=== PATIENT | female | born 1985 | race Two or more races ===

== ENCOUNTER 2017-06-18 06:21 | Inpatient (IN) | payer BC ==
[~2017-06-18 06:21] MED LIST: Sodium Chloride 0.9% 10 ML Syringe FLUSH PRN; Sodium Chloride 0.9% 2.5 ML Syringe FLUSH PRN; ceFAZolin 2 GM in Premix Bag 1 BAG IV ONE
[2017-06-18] MEDS ORDERED: Lactated Ringers 1,000 ML IV SCH (07:00)
[2017-06-18] MEDS ORDERED: Rocuronium 10 MG/ML 10 ML Syringe ONE (07:12)
[2017-06-18] MEDS ORDERED: Lidocaine 2% 5 ML SDV ONE (07:12)
[2017-06-18] MEDS ORDERED: Ondansetron 4 MG/2 ML SDV ONE (07:12)
[2017-06-18] MEDS ORDERED: Neostigmine Methylsulfate 1 MG/ML 5 ML Syringe ONE (07:12)
[2017-06-18] MEDS ORDERED: fentaNYL 250 MCG/5 ML SDV ONE ×2 (07:13→08:29)
[2017-06-18] MEDS ORDERED: Propofol 200 MG/20 ML SDV ONE (07:13)
[2017-06-18] MEDS ORDERED: Midazolam 1 MG/ML 2 ML SDV ONE (07:13)
[2017-06-18] MEDS ORDERED: Sodium Chloride 0.9% 20 ML ONE (07:15)
[2017-06-18] MEDS ORDERED: Water For Injection, Sterile 20 ML ONE (07:15)
[2017-06-18] MEDS ORDERED: ceFAZolin 1 GM Vial ONE (07:15)
[2017-06-18 07:20] LABS: CHLORIDE,CL 111 mmol/L (98-110); SODIUM,NA 141 mmol/L (136-146)
[2017-06-18] MEDS ORDERED: ePHEDrine 50 MG/ML SDV ONE (07:21)
[2017-06-18] MEDS ORDERED: Octyl 2-Cyanoacrylate 1 Tube ONE (07:24)
--- NOTE | 2017-06-18 07:37 | PCM.PREANE ---
Preanesthetic Assessment - Anesthesia/Transfusion/Family Hx Anesthesia History: Prior Anesthesia Without Reaction Family History of Anesthesia Reaction: No Transfusion History: No Prior Transfusion(s) - Review of Systems General: No Symptoms Pulmonary: No Symptoms Cardiovascular: No Symptoms Gastrointestinal: No Symptoms Neurological: No Symptoms Other: Reports: None - Physical Assessment NPO Status Date: 06/17/17 NPO Status Time: 23:00 O2 Sat by Pulse Oximetry: 98 Respiratory Rate: 16 Vital Signs: Last Vital Signs Temp 36.2 C 06/18/17 06:55 Pulse 69 06/18/17 06:55 Resp 16 06/18/17 06:55 BP 116/67 06/18/17 06:55 Pulse Ox 98 06/18/17 06:55 Height: 1.59 m Weight: 85.275 kg Mental Status: Alert & Oriented x3 Airway Class: Mallampati = 1 Dentition: Reports: Normal Dentition ROM/Head Extension: Full Lungs: Clear to Auscultation, Normal Respiratory Effort Cardiovascular: Regular Rate, Regular Rhythm - Lab Values: Laboratory Last Values WBC 2.33 K/uL (4.0-11.0) L 06/18/17 06:47 RBC 4.62 M/uL (4.30-5.90) 06/18/17 06:47 Hgb 12.2 g/dL (12.0-16.0) 06/18/17 06:47 Hct 36.6 % (36.0-46.0) 06/18/17 06:47 MCV 79.2 fL (80.0-98.0) L 06/18/17 06:47 MCH 26.4 pg (27.0-32.0) L 06/18/17 06:47 MCHC 33.3 g/dL (31.0-37.0) 06/18/17 06:47 RDW Std Deviation 41.2 fl (28.0-62.0) 06/18/17 06:47 RDW Coeff of Angelina 14 % (11.0-15.0) 06/18/17 06:47 Plt Count 254 K/uL (150-400) 06/18/17 06:47 MPV 9.60 fL (7.40-12.00) 06/18/17 06:47 Nucleated RBC % 0.0 /100WBC 06/18/17 06:47 Nucleated RBCs # 0 K/uL 06/18/17 06:47 Sodium 141 mmol/L (136-146) 06/18/17 06:47 Potassium 4.0 mmol/L (3.5-5.1) 06/18/17 06:47 Chloride 111 mmol/L (98-110) H 06/18/17 06:47 Carbon Dioxide 22 mmol/L (21-31) 06/18/17 06:47 BUN 13 mg/dL (6.0-23.0) 06/18/17 06:47 Creatinine 0.7 mg/dL (0.6-1.5) 06/18/17 06:47 Est Cr Clr Drug Dosing 93.53 mL/min 06/18/17 06:47 Estimated GFR (MDRD) > 60.0 ml/min 06/18/17 06:47 Glucose 113 mg/dL (60-110) H 06/18/17 06:47 Calcium 8.7 mg/dL (8.8-10.8) L 06/18/17 06:47 HCG, Qual NEGATIVE (NEG) 06/18/17 06:47 Blood Type O POSITIVE 06/18/17 06:47 Antibody Screen NEGATIVE 06/18/17 06:47 - Allergies Allergies/Adverse Reactions: Allergies Allergy/AdvReac Type Severity Reaction Status Date / Time No Known Allergies Allergy Verified 08/01/16 16:34 - Anesthesia Plan Pre-Op Medication Ordered: None - Acknowledgements Anesthesia Type Planned: General Anesthesia Pt an Appropriate Candidate for the Planned Anesthesia: Yes Alternatives and Risks of Anesthesia Discussed w Pt/Guardian: Yes Pt/Guardian Understands and Agrees with Anesthesia Plan: Yes PreAnesthesia Questionnaire - Past Health History Medical/Surgical History: Denies Medical/Surgical History Gastrointestinal History: Reports: None Other Gastrointestinal History: appy Genitourinary History: Reports: Other (See Below) Other Genitourinary History: states currently has uterine fibroid 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: Dysfunctional 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 [No Known Home Meds] 06/14/17 [History] - CURRENT (IN HOUSE) MEDS Current Meds: Current Medications Lactated Ringer's (Ringers, Lactated) 1,000 mls @ 100 mls/hr IV ASDIRECTED ALEJANDRA Sodium Chloride (Saline Flush) 10 ml FLUSH ASDIRECTED PRN PRN Reason: Keep Vein Open Sodium Chloride (Saline Flush) 2.5 ml FLUSH ASDIRECTED PRN PRN Reason: Keep Vein Open Discontinued Medications Cefazolin Sodium (Ancef) Confirm Administered Dose 2 gm .ROUTE .STK-MED ONE Stop: 06/18/17 07:16 Ephedrine Sulfate (Ephedrine Sulfate) Confirm Administered Dose 50 mg .ROUTE .STK-MED ONE Stop: 06/18/17 07:22 Fentanyl (Sublimaze) Confirm Administered Dose 250 mcg .ROUTE .STK-MED ONE Stop: 06/18/17 07:14 Glycopyrrolate () Confirm Administered Dose 1 mg .ROUTE .STK-MED ONE Stop: 06/18/17 07:13 Cefazolin Sodium/Dextrose 2 gm (/ Premix) 50 mls @ 100 mls/hr IV ONETIME ONE Stop: 06/18/17 05:29 Sodium Chloride (Normal Saline) Confirm Administered Dose 20 mls @ as directed .ROUTE .STK-MED ONE Stop: 06/18/17 07:16 Sterile Water (Sterile Water For Injection) Confirm Administered Dose 20 mls @ as directed .ROUTE .STK-MED ONE Stop: 06/18/17 07:16 Lidocaine (Xylocaine-Mpf 2%) Confirm Administered Dose 5 ml .ROUTE .STK-MED ONE Stop: 06/18/17 07:13 Midazolam HCl (Versed 1 Mg/Ml) Confirm Administered Dose 2 mg .ROUTE .STK-MED ONE Stop: 06/18/17 07:14 Neostigmine Methylsulfate (Neostigmine) Confirm Administered Dose 5 mg .ROUTE .STK-MED ONE Stop: 06/18/17 07:13 Octyl Cyanoacrylate (Dermabond Advance) Confirm Administered Dose 1 applic .ROUTE .STK-MED ONE Stop: 06/18/17 07:25 Ondansetron HCl (Zofran) Confirm Administered Dose 4 mg .ROUTE .STK-MED ONE Stop: 06/18/17 07:13 Propofol (Diprivan 20 Ml) Confirm Administered Dose 200 mg .ROUTE .STK-MED ONE Stop: 06/18/17 07:14 Rocuronium [place] (Zemuron) Confirm Administered Dose 100 mg .ROUTE .STK-MED ONE Stop: 06/18/17 07:13 Vecuronium [place] (Vecuronium) Confirm Administered Dose 10 mg .ROUTE .STK-MED ONE Stop: 06/18/17 07:16
[2017-06-18] MEDS ORDERED: HYDROmorphone 2 MG/ML Syringe ONE (08:29)
[2017-06-18] MEDS ORDERED: Metoprolol Tartrate 5 MG/5 ML SDV ONE (08:56)
[2017-06-18] MEDS ORDERED: Dexamethasone 4 MG/ML 5 ML MDV ONE (09:14)
[2017-06-18] MEDS ORDERED: Furosemide 40 MG/4 ML VIAL ONE (09:16)
[2017-06-18] MEDS ORDERED: Fluorescein 5 ML Vial ONE (09:17)
[2017-06-18] MEDS ORDERED: Phenylephrine/Normal Saline 100 MCG/ML 10 ML Syringe ONE (09:40)
[2017-06-18] MEDS ORDERED: fentaNYL 100 MCG/2 ML SDV ONE ×2 (10:35→11:37)
[2017-06-18] MEDS ORDERED: Ondansetron 4 MG/2 ML SDV IVPUSH PRN (11:05)
[2017-06-18] MEDS ORDERED: Morphine 4 MG/ML Syringe IVPUSH PRN (11:05)
[2017-06-18] MEDS ORDERED: Promethazine 25 MG/ML SDV IM PRN (11:05)
--- NOTE | 2017-06-18 11:17 | PCM.OPNOTE ---
- General Post-Op/Procedure Note Date of Surgery/Procedure: 06/18/17 Operative Procedure(s): Total abdominal hysterectomy with bilateral salpingectomy and Cystoscopy Findings: Bulky uterus, 18 weeks size with multi-lobed subserosal fibroids. Normal ovaries and tubes bilaterally Pre Op Diagnosis: 1)Menorrhagia. 2) Fibroid Uterus Post-Op Diagnosis: Same Anesthesia Technique: General ET Tube Primary Surgeon: Kathleen Ly Anesthesia Provider: Francisco Garnica Divisional Human Resources Director: Teena Henriquez Pathology: Uterus with cervix and Bilateral tubes Fluid Replacement, Intraop: 4,000 Output, Urine Amount: 120 EBL in mLs: 750 Complications: None Condition: Good
[2017-06-18] MEDS: Ketorolac 30 MG/ML SDV IVPUSH SCH ×3 (11:22→23:00)
[2017-06-18] MEDS: fentaNYL 100 MCG/2 ML SDV IVPUSH PRN ×4 (11:39→12:10)
--- NOTE | 2017-06-18 12:04 | PCM.POSTAN ---
POST ANESTHESIA ASSESSMENT - MENTAL STATUS Mental Status: Alert, Oriented - VITAL SIGNS Pulse Rate: 67 SaO2: 95 Resp Rate: 16 Blood Pressure: 131/70 - RESPIRATORY Respiratory Status: Respiratory Rate WNL, Airway Patent, O2 Saturation Stable - CARDIOVASCULAR CV Status: Pulse Rate WNL, Blood Pressure Stable - GASTROINTESTINAL GI Status: No Symptoms - PAIN Pain Score: 7 (fentanyl added before transfer) - POST OP HYDRATION Hydration Status: Adequate & Stable
[2017-06-18] MEDS: Morphine 2 MG/ML Syringe IVPUSH PRN ×2 (16:12→20:37)
--- NOTE | 2017-06-18 18:08 | PCM.SURGPN ---
- General Info Date of Service: 06/18/17 POD#: 0 Functional Status: Reports: Pain Controlled, Tolerating Diet, Incentive Spirometry - Review of Systems General: Denies: Fever, Malaise, Chills HEENT: Denies: Headaches Pulmonary: Denies: Shortness of Breath, Pleuritic Chest Pain Cardiovascular: Denies: Chest Pain, Palpitations, Dyspnea on Exertion Gastrointestinal: Reports: Abdominal Pain (Along incision) Genitourinary: Denies: Flank Pain Psychiatric: Denies: Depression, Mood Lability, Anxiety - Patient Data Vitals - Most Recent: Last Vital Signs Temp 36.3 C 06/18/17 16:00 Pulse 71 06/18/17 16:00 Resp 18 06/18/17 16:00 BP 109/66 06/18/17 16:00 Pulse Ox 100 06/18/17 16:00 Weight - Most Recent: 188 lb I&O - Last 24 Hours: Intake & Output 06/18/17 06/18/17 06/18/17 06:59 14:59 22:59 Intake Total 9550 344 Output Total 440 225 Balance 9110 119 Lab Results Last 24 Hrs: Laboratory Results - last 24 hr 06/18/17 06/18/17 06/18/17 Range/Units 06:47 06:47 06:47 WBC 2.33 L (4.0-11.0) K/uL RBC 4.62 (4.30-5.90) M/uL Hgb 12.2 (12.0-16.0) g/dL Hct 36.6 (36.0-46.0) % MCV 79.2 L (80.0-98.0) fL MCH 26.4 L (27.0-32.0) pg MCHC 33.3 (31.0-37.0) g/dL RDW Std Deviation 41.2 (28.0-62.0) fl RDW Coeff of Angelina 14 (11.0-15.0) % Plt Count 254 (150-400) K/uL MPV 9.60 (7.40-12.00) fL Nucleated RBC % 0.0 /100WBC Nucleated RBCs # 0 K/uL Sodium 141 (136-146) mmol/L Potassium 4.0 (3.5-5.1) mmol/L Chloride 111 H (98-110) mmol/L Carbon Dioxide 22 (21-31) mmol/L BUN 13 (6.0-23.0) mg/dL Creatinine 0.7 (0.6-1.5) mg/dL Est Cr Clr Drug Dosing 93.53 mL/min Estimated GFR (MDRD) > 60.0 ml/min Glucose 113 H (60-110) mg/dL Calcium 8.7 L (8.8-10.8) mg/dL HCG, Qual NEGATIVE (NEG) Urine Color Urine Appearance Urine pH (5.0-8.0) Ur Specific [place] (1.001-1.035) Urine Protein (NEGATIVE) mg/dL Urine Glucose (UA) (NEGATIVE) mg/dL Urine Ketones (NEGATIVE) mg/dL Urine Occult Blood (NEGATIVE) Urine Nitrite (NEGATIVE) Urine Bilirubin (NEGATIVE) Urine Urobilinogen (<2.0) EU/dL Ur Leukocyte Esterase (NEGATIVE) Blood Type Antibody Screen 06/18/17 06/18/17 Range/Units 06:47 09:30 WBC (4.0-11.0) K/uL RBC (4.30-5.90) M/uL Hgb (12.0-16.0) g/dL Hct (36.0-46.0) % MCV (80.0-98.0) fL MCH (27.0-32.0) pg MCHC (31.0-37.0) g/dL RDW Std Deviation (28.0-62.0) fl RDW Coeff of Angelina (11.0-15.0) % Plt Count (150-400) K/uL MPV (7.40-12.00) fL Nucleated RBC % /100WBC Nucleated RBCs # K/uL Sodium (136-146) mmol/L Potassium (3.5-5.1) mmol/L Chloride (98-110) mmol/L Carbon Dioxide (21-31) mmol/L BUN (6.0-23.0) mg/dL Creatinine (0.6-1.5) mg/dL Est Cr Clr Drug Dosing mL/min Estimated GFR (MDRD) ml/min Glucose (60-110) mg/dL Calcium (8.8-10.8) mg/dL HCG, Qual (NEG) Urine Color YELLOW Urine Appearance CLEAR Urine pH 8.5 H (5.0-8.0) Ur Specific [place] 1.010 (1.001-1.035) Urine Protein TRACE (NEGATIVE) mg/dL Urine Glucose (UA) NEGATIVE (NEGATIVE) mg/dL Urine Ketones NEGATIVE (NEGATIVE) mg/dL Urine Occult Blood MODERATE (NEGATIVE) Urine Nitrite NEGATIVE (NEGATIVE) Urine Bilirubin NEGATIVE (NEGATIVE) Urine Urobilinogen 0.2 (<2.0) EU/dL Ur Leukocyte Esterase NEGATIVE (NEGATIVE) Blood Type O POSITIVE Antibody Screen NEGATIVE Med Orders - Current: Current Medications Lactated Ringer's (Ringers, Lactated) 1,000 mls @ 150 mls/hr IV ASDIRECTED [facility] Last Admin: 06/18/17 14:09 Dose: 150 mls/hr Ketorolac Tromethamine (Toradol) 30 mg IVPUSH Q6H [facility] Stop: 06/19/17 05:16 Last Admin: 06/18/17 17:17 Dose: 30 mg Morphine Sulfate (Morphine) 2 mg IVPUSH Q2H PRN PRN Reason: Pain (severe 7-10) Last Admin: 06/18/17 16:12 Dose: 2 mg Morphine Sulfate (Morphine) 4 mg IVPUSH Q2H PRN PRN Reason: Pain (severe 7-10) Ondansetron HCl (Zofran) 4 mg IVPUSH Q6H PRN PRN Reason: Nausea/Vomiting Oxycodone/Acetaminophen (Percocet 325-5 Mg) 1 tab PO Q4H PRN PRN Reason: Pain (moderate 4-6) Oxycodone/Acetaminophen (Percocet 325-5 Mg) 2 tab PO Q4H PRN PRN Reason: Pain (moderate 4-6) Promethazine HCl (Phenergan) 25 mg IM Q6H PRN PRN Reason: Nausea/Vomiting Discontinued Medications Cefazolin Sodium (Ancef) Confirm Administered Dose 2 gm .ROUTE .STK-MED ONE Stop: 06/18/17 07:16 Dexamethasone (Dexamethasone) Confirm Administered Dose 20 mg .ROUTE .STK-MED ONE Stop: 06/18/17 09:15 Ephedrine Sulfate (Ephedrine Sulfate) Confirm Administered Dose 50 mg .ROUTE .STK-MED ONE Stop: 06/18/17 07:22 Fentanyl (Sublimaze) Confirm Administered Dose 250 mcg .ROUTE .STK-MED ONE Stop: 06/18/17 07:14 Fentanyl (Sublimaze) Confirm Administered Dose 250 mcg .ROUTE .STK-MED ONE Stop: 06/18/17 08:30 Fentanyl (Sublimaze) Confirm Administered Dose 100 mcg .ROUTE .STK-MED ONE Stop: 06/18/17 10:36 Fentanyl (Sublimaze) Confirm Administered Dose 100 mcg .ROUTE .STK-MED ONE Stop: 06/18/17 11:38 Last Admin: 06/18/17 17:24 Dose: Not Given Fentanyl (Sublimaze) 50 - 100 mcg IVPUSH Q5M PRN PRN Reason: Pain Last Admin: 06/18/17 12:10 Dose: 50 mcg Fluorescein Sodium (Ak-Fluor) Confirm Administered Dose 5 ml .ROUTE .STK-MED ONE Stop: 06/18/17 09:18 Furosemide (Lasix) Confirm Administered Dose 40 mg .ROUTE .STK-MED ONE Stop: 06/18/17 09:17 Glycopyrrolate () Confirm Administered Dose 1 mg .ROUTE .STK-MED ONE Stop: 06/18/17 07:13 Hydromorphone HCl (Dilaudid) Confirm Administered Dose 2 mg .ROUTE .STK-MED ONE Stop: 06/18/17 08:30 Cefazolin Sodium/Dextrose 2 gm (/ Premix) 50 mls @ 100 mls/hr IV ONETIME ONE Stop: 06/18/17 05:29 Sodium Chloride (Normal Saline) Confirm Administered Dose 20 mls @ as directed .ROUTE .STK-MED ONE Stop: 06/18/17 07:16 Sterile Water (Sterile Water For Injection) Confirm Administered Dose 20 mls @ as directed .ROUTE .STK-MED ONE Stop: 06/18/17 07:16 Lidocaine (Xylocaine-Mpf 2%) Confirm Administered Dose 5 ml .ROUTE .STK-MED ONE Stop: 06/18/17 07:13 Metoprolol Tartrate (Lopressor) Confirm Administered Dose 5 mg .ROUTE .STK-MED ONE Stop: 06/18/17 08:57 Midazolam HCl (Versed 1 Mg/Ml) Confirm Administered Dose 2 mg .ROUTE .STK-MED ONE Stop: 06/18/17 07:14 Neostigmine Methylsulfate (Neostigmine) Confirm Administered Dose 5 mg .ROUTE .STK-MED ONE Stop: 06/18/17 07:13 Octyl Cyanoacrylate (Dermabond Advance) Confirm Administered Dose 1 applic .ROUTE .STK-MED ONE Stop: 06/18/17 07:25 Ondansetron HCl (Zofran) Confirm Administered Dose 4 mg .ROUTE .STK-MED ONE Stop: 06/18/17 07:13 Phenylephrine HCl (Phenylephrine In Ns 100 Mcg/Ml) Confirm Administered Dose 1 mg .ROUTE .STK-MED ONE Stop: 06/18/17 09:41 Propofol (Diprivan 20 Ml) Confirm Administered Dose 200 mg .ROUTE .STK-MED ONE Stop: 06/18/17 07:14 Rocuronium [place] (Zemuron) Confirm Administered Dose 100 mg .ROUTE .STK-MED ONE Stop: 06/18/17 07:13 Sodium Chloride (Saline Flush) 10 ml FLUSH ASDIRECTED PRN PRN Reason: Keep Vein Open Sodium Chloride (Saline Flush) 2.5 ml FLUSH ASDIRECTED PRN PRN Reason: Keep Vein Open Vecuronium [place] (Vecuronium) Confirm Administered Dose 10 mg .ROUTE .STK-MED ONE Stop: 06/18/17 07:16 - Exam Wound/Incisions: Dressing Dry and Intact General: Alert, Oriented HEENT: Pupils Equal Lungs: Clear to Auscultation, Normal Respiratory Effort Cardiovascular: Regular Rate, Regular Rhythm GI/Abdominal Exam: Normal Bowel Sounds, Soft Extremities: Non-Tender, No Pedal Edema Psy/Mental Status: Alert, Normal Affect, Normal Mood - Problem List & Annotations (1) Uterine leiomyoma SNOMED Code(s): 95177218 Code(s): D25.9 - LEIOMYOMA OF UTERUS, UNSPECIFIED Status: Acute Current Visit: Yes (2) S/P total abdominal hysterectomy SNOMED Code(s): 494172466, 978514359 Code(s): Z90.710 - ACQUIRED ABSENCE OF BOTH CERVIX AND UTERUS Status: Acute Current Visit: Yes (3) Status post bilateral salpingectomy SNOMED Code(s): 278508519 Code(s): Z90.79 - ACQUIRED ABSENCE OF OTHER GENITAL ORGAN(S) Status: Acute Current Visit: Yes - Problem List Review Problem List Initiated/Reviewed/Updated: Yes - My Orders Last 24 Hours: Active Orders 24 hr Category Date Time Status Patient Status [ADT] Routine ADT 06/18/17 11:05 Active Antiembolic Devices [RC] PER UNIT ROUTINE Care 06/18/17 05:00 Inactive Antiembolic Devices [RC] PER UNIT ROUTINE Care 06/18/17 11:06 Active Intake and Output [RC] Q4HR Care 06/18/17 11:06 Active Notify Provider Intake and Out [RC] ASDIRECTED Care 06/18/17 11:05 Active Notify Provider Vital Signs [RC] ASDIRECTED Care 06/18/17 11:05 Active Oxygen Therapy [RC] ASDIRECTED Care 06/18/17 11:05 Active Procedure Prep Instructions [RC] PER UNIT ROUTINE Care 06/18/17 05:00 Inactive Procedure Site Prep Instruct [RC] PER UNIT ROUTINE Care 06/18/17 05:00 Inactive Pulse Oximetry [RC] PER UNIT ROUTINE Care 06/18/17 11:06 Active RT Incentive Spirometry [RC] Q2HWA Care 06/18/17 11:05 Active Up With Assistance [RC] PER UNIT ROUTINE Care 06/18/17 11:05 Active Up ad Amelia [RC] PER UNIT ROUTINE Care 06/18/17 11:05 Active Urinary Catheter Removal [RC] Per Unit Routine Care 06/18/17 11:05 Active Verify Patient Consent Obtain [RC] PER UNIT ROUTINE Care 06/18/17 05:00 Inactive Vital Signs [RC] PER UNIT ROUTINE Care 06/18/17 05:00 Inactive Vital Signs [RC] PER UNIT ROUTINE Care 06/18/17 11:05 Active Regular Diet [DIET] Diet 06/18/17 Dinner Active BASIC METABOLIC PANEL,BMP [CHEM] AM Lab 06/19/17 05:11 Ordered CBC WITH AUTO DIFF [HEME] AM Lab 06/19/17 05:11 Ordered Acetaminophen/oxyCODONE [Percocet 325-5 MG] Med 06/18/17 11:05 Active 1 tab PO Q4H PRN Acetaminophen/oxyCODONE [Percocet 325-5 MG] Med 06/18/17 11:05 Active 2 tab PO Q4H PRN Ketorolac [Toradol] Med 06/18/17 11:15 Active 30 mg IVPUSH Q6H Lactated Ringers [Ringers, Lactated] 1,000 ml Med 06/18/17 07:00 Active IV ASDIRECTED Morphine Med 06/18/17 11:05 Active 2 mg IVPUSH Q2H PRN Morphine Med 06/18/17 11:05 Active 4 mg IVPUSH Q2H PRN Ondansetron [Zofran] Med 06/18/17 11:05 Active 4 mg IVPUSH Q6H PRN Promethazine [Phenergan] Med 06/18/17 11:05 Active 25 mg IM Q6H PRN Abdominal Binder [OM.PC] Per Unit Routine Oth 06/18/17 11:07 Ordered Peripheral IV Discontinue [OM.PC] Routine Oth 06/18/17 11:05 Ordered Sequential Compression Device [OM.PC] Per Unit Routine Oth 06/18/17 11:05 Ordered Resuscitation Status Routine Resus Stat 06/18/17 11:05 Ordered Medication Orders Lactated Ringer's (Ringers, Lactated) 1,000 mls @ 150 mls/hr IV ASDIRECTED [facility] Last Admin: 06/18/17 14:09 Dose: 150 mls/hr Ketorolac Tromethamine (Toradol) 30 mg IVPUSH Q6H [facility] Stop: 06/19/17 05:16 Last Admin: 06/18/17 17:17 Dose: 30 mg Admin: 06/18/17 11:22 Dose: 30 mg Morphine Sulfate (Morphine) 2 mg IVPUSH Q2H PRN PRN Reason: Pain (severe 7-10) Last Admin: 06/18/17 16:12 Dose: 2 mg Morphine Sulfate (Morphine) 4 mg IVPUSH Q2H PRN PRN Reason: Pain (severe 7-10) Ondansetron HCl (Zofran) 4 mg IVPUSH Q6H PRN PRN Reason: Nausea/Vomiting Oxycodone/Acetaminophen (Percocet 325-5 Mg) 1 tab PO Q4H PRN PRN Reason: Pain (moderate 4-6) Oxycodone/Acetaminophen (Percocet 325-5 Mg) 2 tab PO Q4H PRN PRN Reason: Pain (moderate 4-6) Promethazine HCl (Phenergan) 25 mg IM Q6H PRN PRN Reason: Nausea/Vomiting - Assessment Assessment (Free Text/Narrative):: POD#0 s/o total abdominal hysterectomy with bilateral salpingectomy- stable and afebrile. Pain well controlled Tolerating PO - Plan Plan (Free Text/Narrative):: Continue routine postop care OOB later tonight Continue incentive spirometry while awake
--- NOTE | 2017-06-18 23:20 | OR ---
SURGEON: Kathleen Ly MD DATE OF PROCEDURE: 06/18/2017 COLLECTION OFFICER SURGEON: Teena Henriquez M.D. PREOPERATIVE DIAGNOSES: 1. Menorrhagia. 2. Fibroid uterus. POSTOPERATIVE DIAGNOSES: 1. Menorrhagia. 2. Fibroid uterus. PROCEDURES PERFORMED: 1. Total abdominal hysterectomy with bilateral salpingectomy. 2. Cystoscopy. ESTIMATED BLOOD LOSS: 750 mL. ANESTHESIA: General endotracheal. FLUIDS: 4000 mL crystalloids. FINDING: Enlarged uterus,distorted by multiple subserosal fibroids, approximately 18 weeks in size Grossly normal ovaries and tubes bilaterally. No other pelvic pathology. Ureter patentcy confirmed with copious efflux of urine on cystoscopy DISPOSITION: The patient stable to recovery room. SPECIMENS: Uterus with cervix and left and right fallopian tubes. 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 On ultrasound she was found to have an enlarged uterus with multiple fibroids subserosal, intramural and mucosal in location,the largest measured was 6cm. Management options were discussed with her and she opted to proceed with surgical intervention in the form of hysterectomy. She also opted to have her tubes removed at the time of the surgery. Due to the size of the uterus, I opted to perform an abdominal hysterectomy. Risks and benefits of the surgery were discussed with her extensively and proper consent was obtained. DESCRIPTION OF PROCEDURE: The patient was taken to the operating room where she underwent induction of general anesthesia without difficulty. After appropriate level of anesthesia, she was placed in a modified low dorsal lithotomy position. The patient was then prepped and draped in the usual sterile fashion. Heck to gravity. SCDs to the lower extremities. She received 2 g of Ancef prophylactically. A time- out was performed. A Pfannenstiel incision was made with the scalpel and carried through to the underlying layer of fascia with the Bovie. The fascia was scored in the midline and extended bilaterally. The rectus muscle was in the midline, and the peritoneum was tented up and entered sharply. Further dissection was performed inferiorly and superiorly with good visualization of the bladder and other internal organs. I was then able to palpate the uterus which was lobular with multiple fibroids. It was lifted out of the pelvis, and I was able to appreciate both the right and left ovaries and tubes. The uterus was quite mobile. An Lane O self-retaining retractor was placed into the abdominal cavity. The bowel was then packed out of the way with moist laps. The cornua of the uterus on either sides was then secured with Peon clamps enabling further elevation out of the pelvis. Attention was then turned to the patient's right side. The right round ligament was isolated, suture ligated with 2-0 Vicryl suture and transected. The anterior lip of the broad ligament was then opened up and dissected downwards to the vesicouterine peritoneum. The posterior lip of the broad ligament was dissected inferiorly. After this was dissected down, I was able to palpate the right ureter which was felt to be away from the operating field. A window was then created anterior to the right ovary within the broad ligament and this pedicle was then double clamped with Z-clamps, cut and suture ligated twice with 2-0 Vicryl. Sutures will be 2-0 Vicryl unless, otherwise, mentioned. The uterine vessels on the right side was then skeletonized, double clamped with Z-clamps, transected, and suture ligated with 2-0 Vicryl. Attention was then turned to the patient's left side and similar procedure was performed on the contralateral side. The fallopian tube on the right side was identified, double clamped along the mesosalpinx with Bailey clamps, excised and removed from the operating room. This pedicle was then suture ligated with 2-0 Vicryl. The same procedure was performed on the left side performing a salpingectomy on that side too. Located towards the left side on the lower uterine segment that interfering with further dissection, to increase visibility of the operative field, a myomectomy was performed. At this point, the remainder of the vesicouterine peritoneum was dissected off and mobilized away from the lower uterine segment and the cervix. On either side, the remainder of the cardinal ligaments were clamped with straight Z- clamps, transected, and suture ligated. We were then able to get down to the level of the uterosacral ligaments which were then clamped gentle straight Z-clamps, transected, and suture ligated and transfixed on both sides. The bladder was further mobilized away from the cervix. The anterior vagina was then entered with a scalpel, Z- clamps were placed and the cervix was circumscribed with Fred scissors. The edges of the vagina were secured with Dulce clamps. The uterus and the cervix were handed off to the computer technology teacher and taken off the operative field. An 0 Vicryl was then used to place Rhona sutures on either side of the angles. The vaginal apexes were then transfixed to the uterosacral ligaments on both sides. The cuff was then closed using 0 Vicryl in a continuous running fashion followed by an imbricating layer. The pelvis was copiously irrigated. Hemostasis appeared to be apparent. Attention was then turned to performing a cystoscopy. The patient received fluorescein with Lasix via IV. The Heck catheter was removed. The cystoscope was introduced into the bladder. Using normal saline as a distention media, the dome of the bladder was then visualized and found to be intact. The jose were examined and no injuries were found. The right ureteric orifice followed by the left ureteric orifice were able to be visualized, fluorescein colored urine was seen streaming from both ureteric orifices confirming ureteric patency. The cystoscope was removed. The bladder was emptied, and the Heck catheter was replaced. A speculum was placed in the vagina and the the vaginal cuff was then examined and was found to be hemostatic. The cut off saw operator pipe blanks's gloves were changed. Attention was returned abdominally. The pelvis was once again irrigated and found to be hemostatic. All sutures were trimmed. Interceed was placed above the raw edges of the bladder. The Lane -O retractor and the packing were removed. The edges of the peritoneum were identified and this was closed with 2-0 Vicryl in a running fashion. The muscular layer was reapproximated with mattress sutures. Subfacial layer was hemostatic The fascia was then closed with 0 Vicryl in a running fashion. The subcuticular tissue was irrigated and made hemostatic with electrocautery. The skin was closed with subcuticular stitches using 4-0 Monocryl. Sponge, instrument, and needle counts were correct at the end of the procedure. The patient tolerated the procedure well and was sent to the recovery room in a stable condition. SARITHA / KAMI /[id number] FAITH
[2017-06-19] MEDS: Ketorolac 30 MG/ML SDV IVPUSH SCH (04:38)
[2017-06-19 05:33] LABS: CHLORIDE,CL 109 mmol/L (98-110); SODIUM,NA 137 mmol/L (136-146)
--- NOTE | 2017-06-19 08:43 | PCM48HPAN ---
Post Anesthesia Note - EVALUATION WITHIN 48HRS OF ANESTHETIC Vital Signs in Normal Range: Yes Patient Participated in Evaluation: Yes Respiratory Function Stable: Yes Airway Patent: Yes Cardiovascular Function Stable: Yes Hydration Status Stable: Yes Pain Control Satisfactory: Yes Nausea and Vomiting Control Satisfactory: Yes Mental Status Recovered: Yes
[2017-06-19] MEDS: Acetaminophen/oxyCODONE 325-5 MG Tab PO PRN ×4 (08:45→23:13)
[2017-06-19] MEDS: Docusate Sodium 100 MG Cap PO SCH ×2 (09:45→21:00)
--- NOTE | 2017-06-19 12:43 | PCM.SURGPN ---
- General Info Date of Service: 06/19/17 POD#: 1 Functional Status: Reports: Pain Controlled, Tolerating Diet, Ambulating, Urinating - Review of Systems General: Denies: Fever, Weakness, Fatigue, Malaise, Chills HEENT: Denies: Headaches Pulmonary: Denies: Shortness of Breath, Pleuritic Chest Pain Cardiovascular: Denies: Chest Pain, Palpitations, Dyspnea on Exertion Gastrointestinal: Reports: Abdominal Pain (incisional) Genitourinary: Denies: Incontinence, Retention, Flank Pain Psychiatric: Denies: Mood Lability, Anxiety - Patient Data Vitals - Most Recent: Last Vital Signs Temp 37.4 C 06/19/17 07:45 Pulse 100 06/19/17 07:45 Resp 16 06/19/17 07:45 BP 106/61 06/19/17 07:45 Pulse Ox 100 06/19/17 07:45 Weight - Most Recent: 188 lb I&O - Last 24 Hours: Intake & Output 06/18/17 06/19/17 06/19/17 22:59 06:59 14:59 Intake Total 344 800 Output Total 225 2500 900 Balance 119 -1700 -900 Lab Results Last 24 Hrs: Laboratory Results - last 24 hr 06/19/17 06/19/17 Range/Units 05:01 05:01 WBC 10.40 (4.0-11.0) K/uL RBC 3.35 L (4.30-5.90) M/uL Hgb 8.9 L (12.0-16.0) g/dL Hct 26.4 L (36.0-46.0) % MCV 78.8 L (80.0-98.0) fL MCH 26.6 L (27.0-32.0) pg MCHC 33.7 (31.0-37.0) g/dL RDW Std Deviation 41.9 (28.0-62.0) fl RDW Coeff of Angelina 14 (11.0-15.0) % Plt Count 238 (150-400) K/uL MPV 9.40 (7.40-12.00) fL Neut % (Auto) 81.2 H (48.0-80.0) % Lymph % (Auto) 10.5 L (16.0-40.0) % [place] % (Auto) 8.3 (0.0-15.0) % Eos % (Auto) 0.0 (0.0-7.0) % Baso % (Auto) 0.0 (0.0-1.5) % Neut # (Auto) 8.5 H (1.4-5.7) K/uL Lymph # (Auto) 1.1 (0.6-2.4) K/uL [place] # (Auto) 0.9 H (0.0-0.8) K/uL Eos # (Auto) 0.0 (0.0-0.7) K/uL Baso # (Auto) 0.0 (0.0-0.1) K/uL Nucleated RBC % 0.0 /100WBC Nucleated RBCs # 0 K/uL Sodium 137 (136-146) mmol/L Potassium 3.7 (3.5-5.1) mmol/L Chloride 109 (98-110) mmol/L Carbon Dioxide 22 (21-31) mmol/L BUN 8 (6.0-23.0) mg/dL Creatinine 0.7 (0.6-1.5) mg/dL Est Cr Clr Drug Dosing 93.53 mL/min Estimated GFR (MDRD) > 60.0 ml/min Glucose 142 H (60-110) mg/dL Calcium 8.0 L (8.8-10.8) mg/dL Med Orders - Current: Current Medications Docusate Sodium (Colace) 100 mg PO BID [facility] Last Admin: 06/19/17 09:45 Dose: 100 mg Lactated Ringer's (Ringers, Lactated) 1,000 mls @ 150 mls/hr IV ASDIRECTED [facility] Last Admin: 06/18/17 14:09 Dose: 150 mls/hr Morphine Sulfate (Morphine) 2 mg IVPUSH Q2H PRN PRN Reason: Pain (severe 7-10) Last Admin: 06/18/17 20:37 Dose: 2 mg Morphine Sulfate (Morphine) 4 mg IVPUSH Q2H PRN PRN Reason: Pain (severe 7-10) Ondansetron HCl (Zofran) 4 mg IVPUSH Q6H PRN PRN Reason: Nausea/Vomiting Oxycodone/Acetaminophen (Percocet 325-5 Mg) 1 tab PO Q4H PRN PRN Reason: Pain (moderate 4-6) Last Admin: 06/19/17 08:45 Dose: 1 tab Oxycodone/Acetaminophen (Percocet 325-5 Mg) 2 tab PO Q4H PRN PRN Reason: Pain (moderate 4-6) Promethazine HCl (Phenergan) 25 mg IM Q6H PRN PRN Reason: Nausea/Vomiting Discontinued Medications Cefazolin Sodium (Ancef) Confirm Administered Dose 2 gm .ROUTE .STK-MED ONE Stop: 06/18/17 07:16 Dexamethasone (Dexamethasone) Confirm Administered Dose 20 mg .ROUTE .STK-MED ONE Stop: 06/18/17 09:15 Ephedrine Sulfate (Ephedrine Sulfate) Confirm Administered Dose 50 mg .ROUTE .STK-MED ONE Stop: 06/18/17 07:22 Fentanyl (Sublimaze) Confirm Administered Dose 250 mcg .ROUTE .STK-MED ONE Stop: 06/18/17 07:14 Fentanyl (Sublimaze) Confirm Administered Dose 250 mcg .ROUTE .STK-MED ONE Stop: 06/18/17 08:30 Fentanyl (Sublimaze) Confirm Administered Dose 100 mcg .ROUTE .STK-MED ONE Stop: 06/18/17 10:36 Fentanyl (Sublimaze) Confirm Administered Dose 100 mcg .ROUTE .STK-MED ONE Stop: 06/18/17 11:38 Last Admin: 06/18/17 17:24 Dose: Not Given Fentanyl (Sublimaze) 50 - 100 mcg IVPUSH Q5M PRN PRN Reason: Pain Last Admin: 06/18/17 12:10 Dose: 50 mcg Fluorescein Sodium (Ak-Fluor) Confirm Administered Dose 5 ml .ROUTE .STK-MED ONE Stop: 06/18/17 09:18 Furosemide (Lasix) Confirm Administered Dose 40 mg .ROUTE .STK-MED ONE Stop: 06/18/17 09:17 Glycopyrrolate () Confirm Administered Dose 1 mg .ROUTE .STK-MED ONE Stop: 06/18/17 07:13 Hydromorphone HCl (Dilaudid) Confirm Administered Dose 2 mg .ROUTE .STK-MED ONE Stop: 06/18/17 08:30 Cefazolin Sodium/Dextrose 2 gm (/ Premix) 50 mls @ 100 mls/hr IV ONETIME ONE Stop: 06/18/17 05:29 Sodium Chloride (Normal Saline) Confirm Administered Dose 20 mls @ as directed .ROUTE .[facility] ONE Stop: 06/18/17 07:16 Sterile Water (Sterile Water For Injection) Confirm Administered Dose 20 mls @ as directed .ROUTE .[facility]-MED ONE Stop: 06/18/17 07:16 Ketorolac Tromethamine (Toradol) 30 mg IVPUSH Q6H ALEJANDRA Stop: 06/19/17 05:16 Last Admin: 06/19/17 04:38 Dose: 30 mg Lidocaine (Xylocaine-Mpf 2%) Confirm Administered Dose 5 ml .ROUTE .ST-MED ONE Stop: 06/18/17 07:13 Metoprolol Tartrate (Lopressor) Confirm Administered Dose 5 mg .ROUTE .[facility] ONE Stop: 06/18/17 08:57 Midazolam HCl (Versed 1 Mg/Ml) Confirm Administered Dose 2 mg .ROUTE .ST-MED ONE Stop: 06/18/17 07:14 Neostigmine Methylsulfate (Neostigmine) Confirm Administered Dose 5 mg .ROUTE .ST-MED ONE Stop: 06/18/17 07:13 Octyl Cyanoacrylate (Dermabond Advance) Confirm Administered Dose 1 applic .ROUTE .[facility] ONE Stop: 06/18/17 07:25 Ondansetron HCl (Zofran) Confirm Administered Dose 4 mg .ROUTE .ST-MED ONE Stop: 06/18/17 07:13 Phenylephrine HCl (Phenylephrine In Ns 100 Mcg/Ml) Confirm Administered Dose 1 mg .ROUTE .ST-MED ONE Stop: 06/18/17 09:41 Propofol (Diprivan 20 Ml) Confirm Administered Dose 200 mg .ROUTE .ST-MED ONE Stop: 06/18/17 07:14 Rocuronium [place] (Zemuron) Confirm Administered Dose 100 mg .ROUTE .ST-MED ONE Stop: 06/18/17 07:13 Sodium Chloride (Saline Flush) 10 ml FLUSH ASDIRECTED PRN PRN Reason: Keep Vein Open Sodium Chloride (Saline Flush) 2.5 ml FLUSH ASDIRECTED PRN PRN Reason: Keep Vein Open Vecuronium [place] (Vecuronium) Confirm Administered Dose 10 mg .ROUTE .ST-MED ONE Stop: 06/18/17 07:16 - Exam Wound/Incisions: Healing Well General: Alert, Oriented HEENT: Pupils Equal Neck: Supple Lungs: Clear to Auscultation, Normal Respiratory Effort Cardiovascular: Regular Rate, Regular Rhythm GI/Abdominal Exam: Normal Bowel Sounds, Soft, Non-Tender Extremities: No Pedal Edema Skin: Warm Psy/Mental Status: Alert, Normal Affect, Normal Mood - Problem List & Annotations (1) Uterine leiomyoma SNOMED Code(s): 07298604 Code(s): D25.9 - LEIOMYOMA OF UTERUS, UNSPECIFIED Status: Acute Current Visit: Yes (2) S/P total abdominal hysterectomy SNOMED Code(s): 837650157, 778926286 Code(s): Z90.710 - ACQUIRED ABSENCE OF BOTH CERVIX AND UTERUS Status: Acute Current Visit: Yes (3) Status post bilateral salpingectomy SNOMED Code(s): 362873997 Code(s): Z90.79 - ACQUIRED ABSENCE OF OTHER GENITAL ORGAN(S) Status: Acute Current Visit: Yes (4) Anemia SNOMED Code(s): 716512404 Code(s): D64.9 - ANEMIA, UNSPECIFIED Status: Acute Current Visit: Yes Qualifiers: Anemia type: other cause - Problem List Review Problem List Initiated/Reviewed/Updated: Yes - My Orders Last 24 Hours: Active Orders 24 hr Category Date Time Status Regular Diet [DIET] Diet 06/18/17 Dinner Active Docusate Sodium [Colace] Med 06/19/17 09:15 Active 100 mg PO BID Medication Orders Docusate Sodium (Colace) 100 mg PO BID [facility] Last Admin: 06/19/17 09:45 Dose: 100 mg Lactated Ringer's (Ringers, Lactated) 1,000 mls @ 150 mls/hr IV ASDIRECTED [facility] Last Admin: 06/18/17 14:09 Dose: 150 mls/hr Morphine Sulfate (Morphine) 2 mg IVPUSH Q2H PRN PRN Reason: Pain (severe 7-10) Last Admin: 06/18/17 20:37 Dose: 2 mg Admin: 06/18/17 16:12 Dose: 2 mg Morphine Sulfate (Morphine) 4 mg IVPUSH Q2H PRN PRN Reason: Pain (severe 7-10) Ondansetron HCl (Zofran) 4 mg IVPUSH Q6H PRN PRN Reason: Nausea/Vomiting Oxycodone/Acetaminophen (Percocet 325-5 Mg) 1 tab PO Q4H PRN PRN Reason: Pain (moderate 4-6) Last Admin: 06/19/17 08:45 Dose: 1 tab Oxycodone/Acetaminophen (Percocet 325-5 Mg) 2 tab PO Q4H PRN PRN Reason: Pain (moderate 4-6) Promethazine HCl (Phenergan) 25 mg IM Q6H PRN PRN Reason: Nausea/Vomiting - Assessment Assessment (Free Text/Narrative):: POD#1 s/p MATI with bilateral salpingectomy, stable and afebrile Hgb 8.9g/dl- asymptomatic - Plan Plan (Free Text/Narrative):: Continue routine postop care Start Iron supplements Will aim for discharge tomorrow
[2017-06-20] MEDS: Acetaminophen/oxyCODONE 325-5 MG Tab PO PRN ×3 (03:33→11:28)
--- NOTE | 2017-06-20 09:02 | PCM.SURGPN ---
- General Info Date of Service: 06/20/17 POD#: 2 Functional Status: Reports: Pain Controlled, Tolerating Diet, Ambulating, Urinating - Review of Systems General: Denies: Fever, Malaise, Chills HEENT: Denies: Headaches Pulmonary: Denies: Shortness of Breath, Pleuritic Chest Pain, Cough Cardiovascular: Denies: Palpitations, Dyspnea on Exertion Gastrointestinal: Denies: Abdominal Pain Genitourinary: Denies: Dysuria, Incontinence, Flank Pain Psychiatric: Denies: Confusion, Depression, Anxiety - Patient Data Vitals - Most Recent: Last Vital Signs Temp 37.2 C 06/20/17 07:37 Pulse 86 06/20/17 07:37 Resp 16 06/20/17 07:37 BP 112/77 06/20/17 07:37 Pulse Ox 99 06/20/17 07:37 Weight - Most Recent: 188 lb Med Orders - Current: Current Medications Docusate Sodium (Colace) 100 mg PO BID [facility] Last Admin: 06/19/17 21:00 Dose: 100 mg Lactated Ringer's (Ringers, Lactated) 1,000 mls @ 150 mls/hr IV ASDIRECTED [facility] Last Admin: 06/18/17 14:09 Dose: 150 mls/hr Morphine Sulfate (Morphine) 2 mg IVPUSH Q2H PRN PRN Reason: Pain (severe 7-10) Last Admin: 06/18/17 20:37 Dose: 2 mg Morphine Sulfate (Morphine) 4 mg IVPUSH Q2H PRN PRN Reason: Pain (severe 7-10) Ondansetron HCl (Zofran) 4 mg IVPUSH Q6H PRN PRN Reason: Nausea/Vomiting Oxycodone/Acetaminophen (Percocet 325-5 Mg) 1 tab PO Q4H PRN PRN Reason: Pain (moderate 4-6) Last Admin: 06/19/17 14:21 Dose: 1 tab Oxycodone/Acetaminophen (Percocet 325-5 Mg) 2 tab PO Q4H PRN PRN Reason: Pain (moderate 4-6) Last Admin: 06/20/17 06:23 Dose: 2 tab Promethazine HCl (Phenergan) 25 mg IM Q6H PRN PRN Reason: Nausea/Vomiting Discontinued Medications Cefazolin Sodium (Ancef) Confirm Administered Dose 2 gm .ROUTE .STK-MED ONE Stop: 06/18/17 07:16 Dexamethasone (Dexamethasone) Confirm Administered Dose 20 mg .ROUTE .STK-MED ONE Stop: 06/18/17 09:15 Ephedrine Sulfate (Ephedrine Sulfate) Confirm Administered Dose 50 mg .ROUTE .STK-MED ONE Stop: 06/18/17 07:22 Fentanyl (Sublimaze) Confirm Administered Dose 250 mcg .ROUTE .STK-MED ONE Stop: 06/18/17 07:14 Fentanyl (Sublimaze) Confirm Administered Dose 250 mcg .ROUTE .STK-MED ONE Stop: 06/18/17 08:30 Fentanyl (Sublimaze) Confirm Administered Dose 100 mcg .ROUTE .STK-MED ONE Stop: 06/18/17 10:36 Fentanyl (Sublimaze) Confirm Administered Dose 100 mcg .ROUTE .STK-MED ONE Stop: 06/18/17 11:38 Last Admin: 06/18/17 17:24 Dose: Not Given Fentanyl (Sublimaze) 50 - 100 mcg IVPUSH Q5M PRN PRN Reason: Pain Last Admin: 06/18/17 12:10 Dose: 50 mcg Fluorescein Sodium (Ak-Fluor) Confirm Administered Dose 5 ml .ROUTE .STK-MED ONE Stop: 06/18/17 09:18 Furosemide (Lasix) Confirm Administered Dose 40 mg .ROUTE .STK-MED ONE Stop: 06/18/17 09:17 Glycopyrrolate () Confirm Administered Dose 1 mg .ROUTE .STK-MED ONE Stop: 06/18/17 07:13 Hydromorphone HCl (Dilaudid) Confirm Administered Dose 2 mg .ROUTE .STK-MED ONE Stop: 06/18/17 08:30 Cefazolin Sodium/Dextrose 2 gm (/ Premix) 50 mls @ 100 mls/hr IV ONETIME ONE Stop: 06/18/17 05:29 Sodium Chloride (Normal Saline) Confirm Administered Dose 20 mls @ as directed .ROUTE .STK-MED ONE Stop: 06/18/17 07:16 Sterile Water (Sterile Water For Injection) Confirm Administered Dose 20 mls @ as directed .ROUTE .STK-MED ONE Stop: 06/18/17 07:16 Ketorolac Tromethamine (Toradol) 30 mg IVPUSH Q6H ALEJANDRA Stop: 06/19/17 05:16 Last Admin: 06/19/17 04:38 Dose: 30 mg Lidocaine (Xylocaine-Mpf 2%) Confirm Administered Dose 5 ml .ROUTE .STK-MED ONE Stop: 06/18/17 07:13 Metoprolol Tartrate (Lopressor) Confirm Administered Dose 5 mg .ROUTE .STK-MED ONE Stop: 06/18/17 08:57 Midazolam HCl (Versed 1 Mg/Ml) Confirm Administered Dose 2 mg .ROUTE .STK-MED ONE Stop: 06/18/17 07:14 Neostigmine Methylsulfate (Neostigmine) Confirm Administered Dose 5 mg .ROUTE .STK-MED ONE Stop: 06/18/17 07:13 Octyl Cyanoacrylate (Dermabond Advance) Confirm Administered Dose 1 applic .ROUTE .STK-MED ONE Stop: 06/18/17 07:25 Ondansetron HCl (Zofran) Confirm Administered Dose 4 mg .ROUTE .STK-MED ONE Stop: 06/18/17 07:13 Phenylephrine HCl (Phenylephrine In Ns 100 Mcg/Ml) Confirm Administered Dose 1 mg .ROUTE .STK-MED ONE Stop: 06/18/17 09:41 Propofol (Diprivan 20 Ml) Confirm Administered Dose 200 mg .ROUTE .STK-MED ONE Stop: 06/18/17 07:14 Rocuronium [place] (Zemuron) Confirm Administered Dose 100 mg .ROUTE .STK-MED ONE Stop: 06/18/17 07:13 Sodium Chloride (Saline Flush) 10 ml FLUSH ASDIRECTED PRN PRN Reason: Keep Vein Open Sodium Chloride (Saline Flush) 2.5 ml FLUSH ASDIRECTED PRN PRN Reason: Keep Vein Open Vecuronium [place] (Vecuronium) Confirm Administered Dose 10 mg .ROUTE .STK-MED ONE Stop: 06/18/17 07:16 - Exam Wound/Incisions: Healing Well General: Alert, Moderate Distress HEENT: Pupils Equal, Pupils Reactive Lungs: Clear to Auscultation, Normal Respiratory Effort Cardiovascular: Regular Rate, Regular Rhythm GI/Abdominal Exam: Normal Bowel Sounds, Soft Extremities: No Pedal Edema Skin: Warm Psy/Mental Status: Alert, Normal Affect, Normal Mood - Problem List & Annotations (1) Uterine leiomyoma SNOMED Code(s): 15389600 Code(s): D25.9 - LEIOMYOMA OF UTERUS, UNSPECIFIED Status: Acute Current Visit: Yes (2) S/P total abdominal hysterectomy SNOMED Code(s): 361632667, 343901839 Code(s): Z90.710 - ACQUIRED ABSENCE OF BOTH CERVIX AND UTERUS Status: Acute Current Visit: Yes (3) Status post bilateral salpingectomy SNOMED Code(s): 869062363 Code(s): Z90.79 - ACQUIRED ABSENCE OF OTHER GENITAL ORGAN(S) Status: Acute Current Visit: Yes (4) Anemia SNOMED Code(s): 059633682 Code(s): D64.9 - ANEMIA, UNSPECIFIED Status: Acute Current Visit: Yes Qualifiers: Anemia type: other cause - Problem List Review Problem List Initiated/Reviewed/Updated: Yes - My Orders Last 24 Hours: Active Orders 24 hr Category Date Time Status Docusate Sodium [Colace] Med 06/19/17 09:15 Active 100 mg PO BID Medication Orders Docusate Sodium (Colace) 100 mg PO BID [facility] Last Admin: 06/19/17 21:00 Dose: 100 mg Admin: 06/19/17 09:45 Dose: 100 mg Lactated Ringer's (Ringers, Lactated) 1,000 mls @ 150 mls/hr IV ASDIRECTED [facility] Last Admin: 06/18/17 14:09 Dose: 150 mls/hr Morphine Sulfate (Morphine) 2 mg IVPUSH Q2H PRN PRN Reason: Pain (severe 7-10) Last Admin: 06/18/17 20:37 Dose: 2 mg Admin: 06/18/17 16:12 Dose: 2 mg Morphine Sulfate (Morphine) 4 mg IVPUSH Q2H PRN PRN Reason: Pain (severe 7-10) Ondansetron HCl (Zofran) 4 mg IVPUSH Q6H PRN PRN Reason: Nausea/Vomiting Oxycodone/Acetaminophen (Percocet 325-5 Mg) 1 tab PO Q4H PRN PRN Reason: Pain (moderate 4-6) Last Admin: 06/19/17 14:21 Dose: 1 tab Admin: 06/19/17 08:45 Dose: 1 tab Oxycodone/Acetaminophen (Percocet 325-5 Mg) 2 tab PO Q4H PRN PRN Reason: Pain (moderate 4-6) Last Admin: 06/20/17 06:23 Dose: 2 tab Admin: 06/20/17 03:33 Dose: 2 tab Admin: 06/19/17 23:13 Dose: 2 tab Admin: 06/19/17 19:24 Dose: 2 tab Promethazine HCl (Phenergan) 25 mg IM Q6H PRN PRN Reason: Nausea/Vomiting - Assessment Assessment (Free Text/Narrative):: POD#2 s/p MATI with bilateral salpingectomy- stable and afebrile - Plan Plan (Free Text/Narrative):: Discharge home today Discharge instructions reviewed. Nothing in the vagina for 6 weeks Bleeding, infection precautions and incision care reviewed Pain meds sent to pharmacy Continue iron supplements with stool softeners for a month Follow up in [facility] in 2 and 6 weeks
[2017-06-20 09:47] VITALS: BP 117/67
[2017-06-20] MEDS: Docusate Sodium 100 MG Cap PO SCH (11:28)
== END 2017-06-20 11:35 | disposition home or self-care (01) | DRG 519 ==
LOC: MW.OB 06:21
PROVIDERS: ADMIT Obstetrics & Gynecology; ATTEND Obstetrics & Gynecology
PROC: 0UT90ZZ Resection of Uterus, Open Approach (ICD-10-PCS; principal; 2017-06-18)
PROC: 0UTC0ZZ Resection of Cervix, Open Approach (ICD-10-PCS; 2017-06-18)
PROC: 0UB70ZZ Excision of Bilateral Fallopian Tubes, Open Approach (ICD-10-PCS; 2017-06-18)
DX: D25.9 Leiomyoma of uterus, unspecified (principal); N92.0 Excessive and frequent menstruation with regular cycle
CPT/HCPCS: 00840; 36415; 80048; 81003; 84703; 85025; 85027; 86850; 86900; 86901; 88307; A9270-GY; C1765; J0690; J1100; J1170; J1885; J1940; J2250; J2270; J2405; J2704; J3010; J7120

== ENCOUNTER 2018-11-18 08:00 | Emergency (ER) | payer BC ==
--- NOTE | 2018-11-18 08:27 | EDM.PDOC ---
ED HPI GENERAL MEDICAL PROBLEM - General Chief Complaint: Respiratory Problem Stated Complaint: COUGH Time Seen by Provider: 11/18/18 08:13 Source of Information: Reports: Patient History Limitations: Reports: No Limitations - History of Present Illness INITIAL COMMENTS - FREE TEXT/NARRATIVE: History of present illness: []1 week of cough and diarrhea early on diarrhea has since resolved. He denies any fevers, chills, shortness of breath, sore throat or ear pain. She has been using [id number] remedies without relief. Review of systems: As per history of present illness and below otherwise all systems reviewed and negative. Past medical history: As per history of present illness and as reviewed below otherwise noncontributory. Surgical history: As per history of present illness and as reviewed below otherwise noncontributory. Social history: No reported history of drug or alcohol abuse. Family history: As per history of present illness and as reviewed below otherwise noncontributory. Physical exam: General: Well developed, well nourished in NAD HEENT: Atraumatic, normocephalic, pupils reactive, negative for conjunctival pallor or scleral icterus, mucous membranes moist, throat clear, neck supple, nontender, trachea midline. TMs clear Lungs: Clear to auscultation, breath sounds equal bilaterally, chest nontender. No wheezing or rhonchi Heart: S1S2, regular, negative for clicks, rubs, or JVD. Abdomen: NABS, Soft, nondistended, nontender. Negative for masses or hepatosplenomegaly. Negative for costovertebral tenderness. Pelvis: Stable nontender. Genitourinary: Deferred. Rectal: Deferred. Extremities: Atraumatic, negative for cords or calf pain. Neurovascular unremarkable. Neuro: Awake, alert, oriented. Cranial nerves II through XII unremarkable. Cerebellum unremarkable. Motor and sensory unremarkable throughout. Exam nonfocal. Skin:warm and dry Diagnostics: None Therapeutics: None ED Course: Stable Impression: URI Prescriptions: Prednisone, Robitussin-AC Plan: Follow-up with PMD Definitive disposition and diagnosis as appropriate pending reevaluation and review of above. 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: Dysfunctional Uterine Bleeding, Fibroids Endocrine/Metabolic History: Reports: Obesity/BMI 30+ - Infectious Disease History Infectious Disease History: Reports: None - Past Surgical History Head Surgeries/Procedures: Reports: None HEENT Surgical History: Reports: None Cardiovascular Surgical History: Reports: None Respiratory Surgical History: Reports: None GI Surgical History: Reports: Appendectomy Female Surgical History: Reports: Breast Biopsy Social & Family History - Family History Family Medical History: Noncontributory - Tobacco Use Smoking Status *Q: Never Smoker - Caffeine Use Caffeine Use: Reports: None - Recreational Drug Use Recreational Drug Use: No ED ROS GENERAL - Review of Systems Review Of Systems: ROS reveals no pertinent complaints other than HPI. ED EXAM, GENERAL - Physical Exam Exam: See Below (See history of present illness) Course - Vital Signs Last Recorded V/S: Last Vital Signs Temp 96.6 F 11/18/18 08:30 Pulse 69 11/18/18 08:30 Resp 17 11/18/18 08:30 BP 117/66 11/18/18 08:30 Pulse Ox 98 11/18/18 08:30 Departure - Departure Time of Disposition: 08:26 Disposition: Home, Self-Care 01 Condition: Good Clinical Impression: Viral bronchitis - Discharge Information *PRESCRIPTION DRUG MONITORING PROGRAM REVIEWED*: No *COPY OF PRESCRIPTION DRUG MONITORING REPORT IN PATIENT FAZAL: No Prescriptions: Codeine/guaiFENesin [Robitussin AC] 5 ml PO Q6H #120 ml predniSONE [Prednisone] 20 mg PO DAILY #5 tablet Instructions: Acute Bronchitis, Adult, [id number] Referrals: PCP,None [Primary Care Provider] - Forms: ED Department Discharge Additional Instructions: The following information is given to patients seen in the emergency department who are being discharged to home. This information is to outline your options for follow-up care. We provide all patients seen in our emergency department with a follow-up referral. The need for follow-up, as well as the timing and circumstances, are variable depending upon the specifics of your emergency department visit. If you don't have a primary care physician on staff, we will provide you with a referral. We always advise you to contact your personal physician following an emergency department visit to inform them of the circumstance of the visit and for follow-up with them and/or the need for any referrals to a consulting specialist. The emergency department will also refer you to a specialist when appropriate. This referral assures that you have the opportunity for follow-up care with a specialist. All of these measure are taken in an effort to provide you with optimal care, which includes your follow-up. Under all circumstances we always encourage you to contact your private physician who remains a resource for coordinating your care. When calling for follow-up care, please make the office aware that this follow-up is from your recent emergency room visit. If for any reason you are refused follow-up, please contact the [facility] Emergency Department at and asked to speak to the emergency department charge nurse. Take meds as directed, follow up with your primary care physician, return to ER if symptoms worsen or change. [facility] [address] [place] [id number]
[2018-11-18 08:41] VITALS: BP 117/66
== END 2018-11-18 08:30 | disposition home or self-care (01) ==
LOC: MW.ED 08:00
DX: J20.8 Acute bronchitis due to other specified organisms (principal); Z79.899 Other long term (current) drug therapy
CPT/HCPCS: 99283

== ENCOUNTER 2018-12-05 07:23 | Day surgery (SDC) | payer BC ==
[~2018-12-05 07:23] MED LIST changes: +Lactated Ringers 1,000 ML IV SCH; +Sodium Chloride 0.9% 10 ML SDV IV PRN
--- NOTE | 2018-12-05 07:56 | PCM.PREANE ---
Preanesthetic Assessment - Anesthesia/Transfusion/Family Hx Anesthesia History: Prior Anesthesia Without Reaction Family History of Anesthesia Reaction: No Transfusion History: No Prior Transfusion(s) - Review of Systems General: No Symptoms Pulmonary: No Symptoms Cardiovascular: No Symptoms Gastrointestinal: No Symptoms Neurological: No Symptoms Other: Reports: None - Physical Assessment O2 Sat by Pulse Oximetry: 99 Respiratory Rate: 16 Vital Signs: Last Vital Signs Temp 96.8 F 12/05/18 07:44 Pulse 55 L 12/05/18 07:44 Resp 16 12/05/18 07:44 BP 119/80 12/05/18 07:44 Pulse Ox 99 12/05/18 07:44 Height: 5 ft 3 in Weight: 92.079 kg ASA Class: 2 Mental Status: Alert & Oriented x3 Airway Class: Mallampati = 2 Dentition: Reports: Normal Dentition ROM/Head Extension: Full Lungs: Clear to Auscultation, Normal Respiratory Effort Cardiovascular: Regular Rate, Regular Rhythm - Allergies Allergies/Adverse Reactions: Allergies Allergy/AdvReac Type Severity Reaction Status Date / Time No Known Allergies Allergy Verified 12/02/18 07:34 - Blood Blood Available: No - Anesthesia Plan Pre-Op Medication Ordered: None - Acknowledgements Anesthesia Type Planned: General Anesthesia Pt an Appropriate Candidate for the Planned Anesthesia: Yes Alternatives and Risks of Anesthesia Discussed w Pt/Guardian: Yes Pt/Guardian Understands and Agrees with Anesthesia Plan: Yes Additional Comments: PMHL obesity with BMI 36 PLAN: GA-LMA PreAnesthesia Questionnaire - Past Health History Medical/Surgical History: Denies Medical/Surgical History HEENT History: Reports: None Cardiovascular History: Reports: None Respiratory History: Reports: None Gastrointestinal History: Reports: None Genitourinary History: Reports: None 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 Musculoskeletal History: Reports: None Neurological History: Reports: None Psychiatric History: Reports: None Endocrine/Metabolic History: Reports: Obesity/BMI 30+ Hematologic History: Reports: None Immunologic History: Reports: None Oncologic (Cancer) History: Reports: None Dermatologic History: Reports: None - Infectious Disease History Infectious Disease History: Reports: None - Past Surgical History Head Surgeries/Procedures: Reports: None HEENT Surgical History: Reports: None Cardiovascular Surgical History: Reports: None Respiratory Surgical History: Reports: None GI Surgical History: Reports: Appendectomy Female Surgical History: Reports: Breast Biopsy, Hysterectomy Other Female Surgeries/Procedures: hx rt breast lumpectomy Endocrine Surgical History: Reports: None Neurological Surgical History: Reports: None Musculoskeletal Surgical History: Reports: None Oncologic Surgical History: Reports: None Dermatological Surgical History: Reports: None - SUBSTANCE USE Smoking Status *Q: Never Smoker Recreational Drug Use History: No - HOME MEDS Home Medications: Home Meds . [No Known Home Meds] 12/02/18 [History] - CURRENT (IN HOUSE) MEDS Current Meds: Current Medications Lactated Ringer's (Ringers, Lactated) 1,000 mls @ 125 mls/hr IV ASDIRECTED ALEJANDRA Lactated Ringer's (Ringers, Lactated) 1,000 mls @ 125 mls/hr IV ASDIRECTED ALEJANDRA Last Admin: 12/05/18 07:47 Dose: 125 mls/hr Sodium Chloride (Saline Flush) 10 ml FLUSH ASDIRECTED PRN PRN Reason: Keep Vein Open Sodium Chloride (Saline Flush) 2.5 ml FLUSH ASDIRECTED PRN PRN Reason: Keep Vein Open Sodium Chloride (Normal Saline) 10 ml IV ASDIRECTED PRN PRN Reason: IV Use Discontinued Medications Cefazolin Sodium/Dextrose 2 gm (/ Premix) 50 mls @ 100 mls/hr IV ONETIME ONE Stop: 12/05/18 05:29
[2018-12-05] MEDS ORDERED: fentaNYL 100 MCG/2 ML SDV IVPUSH PRN (08:34)
[2018-12-05] MEDS ORDERED: HYDROmorphone 2 MG/ML SDV IVPUSH PRN (08:34)
[2018-12-05] MEDS ORDERED: Ondansetron 4 MG/2 ML SDV IVPUSH PRN (08:35)
[2018-12-05] MEDS ORDERED: Midazolam 1 MG/ML 2 ML SDV ONE (08:43)
[2018-12-05] MEDS ORDERED: Ondansetron 4 MG/2 ML SDV ONE (08:43)
[2018-12-05] MEDS ORDERED: Propofol 200 MG/20 ML SDV ONE (08:43)
[2018-12-05] MEDS ORDERED: fentaNYL 100 MCG/2 ML SDV ONE (08:43)
[2018-12-05] MEDS ORDERED: Lidocaine 2% 5 ML SDV ONE (08:43)
[2018-12-05] MEDS ORDERED: Bupivacaine 25%/EPINEPHrine/PF 30 ML ONE (09:50)
[2018-12-05] MEDS ORDERED: Octyl 2-Cyanoacrylate 1 Tube ONE (09:51)
[2018-12-05] MEDS ORDERED: ceFAZolin 1 GM Vial ONE (09:56)
[2018-12-05] MEDS ORDERED: Dexamethasone 4 MG/ML 5 ML MDV ONE (09:56)
[2018-12-05] MEDS ORDERED: Acetaminophen/oxyCODONE 325-5 MG Tab PO PRN (09:59)
[2018-12-05] MEDS ORDERED: Ketorolac 30 MG/ML SDV ONE (11:32)
--- NOTE | 2018-12-05 11:50 | PCM.OPNOTE ---
- General Post-Op/Procedure Note Date of Surgery/Procedure: 12/05/18 Operative Procedure(s): needle loc bx L breast Findings: masss at 12 oclock, 2 fingers distance, confirmed by radiology, completely excised; L breast [id number] Pre Op Diagnosis: l breast mass Post-Op Diagnosis: Same Anesthesia Technique: General ET Tube Primary Surgeon: Kj Jose Pathology: l breat mass Complications: None Condition: Good
--- NOTE | 2018-12-05 12:12 | MY ---
EXAMINATION: Left breast specimen mammogram HISTORY: Biopsy COMPARISON: Ultrasound from the same day TECHNIQUE: Single specimen mammogram obtained FINDINGS/IMPRESSION: A single small specimen mammogram demonstrates the wire with a mass of concern near the tip.
--- NOTE | 2018-12-05 12:13 | US ---
EXAMINATION: Ultrasound guided left breast wire localization HISTORY: Lump COMPARISON: 01/06/2019 TECHNIQUE: The procedure, risks, and benefits are discussed with the patient. Informed consent was obtained. The overlying breast was sterilely prepped, 1% lidocaine was administered for local anesthesia. Using ultrasound guidance a wire localization needle was advanced into the left breast mass of concern. The hook was deployed and confirmed in position. The patient tolerated the procedure well. IMPRESSION: Successful ultrasound-guided left breast wire localization.
--- NOTE | 2018-12-05 12:14 | PCM.POSTAN ---
POST ANESTHESIA ASSESSMENT - MENTAL STATUS Mental Status: Alert, Oriented - RESPIRATORY Respiratory Status: Respiratory Rate WNL, Airway Patent, O2 Saturation Stable - CARDIOVASCULAR CV Status: Pulse Rate WNL, Blood Pressure Stable - GASTROINTESTINAL GI Status: No Symptoms - POST OP HYDRATION Hydration Status: Adequate & Stable
[2018-12-05 13:04] VITALS: BP 125/74
--- NOTE | 2018-12-05 13:06 | PCM48HPAN ---
Post Anesthesia Note - EVALUATION WITHIN 48HRS OF ANESTHETIC Vital Signs in Normal Range: Yes Patient Participated in Evaluation: Yes Respiratory Function Stable: Yes Airway Patent: Yes Cardiovascular Function Stable: Yes Hydration Status Stable: Yes Pain Control Satisfactory: Yes Nausea and Vomiting Control Satisfactory: Yes Mental Status Recovered: Yes Resp Rate: 16
--- NOTE | 2018-12-05 16:55 | OR ---
SURGEON: Kj Jose MD DATE OF PROCEDURE: 12/05/2018 PREOPERATIVE DIAGNOSIS: Left breast mass. POSTOPERATIVE DIAGNOSIS: Left breast mass. PROCEDURE PERFORMED: Needle localization lumpectomy, left breast. COMPLICATIONS: None. FINDINGS: Confirmed by Radiology, the whole mass was removed. PROCEDURE IN DETAIL: The patient was taken to the operating room, placed in a supine position. Upon induction of general endotracheal anesthesia, the patient's left breast was prepped and draped in a sterile fashion. Time-out was being called; the patient identified, procedure identified, antibiotic given. Procedure then started. Prior to coming to the operating room, a needle localization had been done by Radiology using ultrasound and the position on the needle was about 2 fingerbreadths at 2 o'clock. The patient was then prepped and draped in sterile fashion. Using a skin scalpel, a curvilinear incision, circumferential, was made from 11 o'clock to 2 o'clock and about 2 fingerbreadths from the areola. A superior flap was developed, an inferior flap was developed, and followed the direction of the wire. The mass at the tip of wire was circumferentially cored out and the specimen was oriented with Prolene at superficial and superior 12 o'clock, Vicryl at deep 6 o'clock, and specimen sent for pathology after Radiology confirmed completely removed. Good hemostasis achieved by using electrocautery and 3 vascular clips were placed where the mass excised and the incision was closed by use of 4-0 Monocryl and Steri-Strips. The patient was then awakened, extubated, and transferred to recovery room in hemodynamically stable condition. The patient tolerated the procedure well. There were no intraoperative complications. Dr. Jose was present through the whole procedure. The location of the mass was roughly 12 o'clock, 2 fingers from the areola. JOSE L / KAMI /[id number]
== END 2018-12-05 13:18 | disposition home or self-care (01) ==
LOC: MW.MAM 07:23 → EDSTATUS 09:45 → MW.MAM 13:18
PROVIDERS: ATTEND Surgery
DX: D24.2 Benign neoplasm of left breast (principal); D25.9 Leiomyoma of uterus, unspecified; Z80.3 Family history of malignant neoplasm of breast; Z86.018 Personal history of other benign neoplasm
CPT/HCPCS: 00400; 19285-LT; 76098; 76098-26; 81025; 88305; A9270-GY; J0131; J0690; J1100; J1885; J2001; J2250; J2405; J2704; J3010; J7120